=== PATIENT | male | born 1990 | race Caucasian/White ===

== ENCOUNTER 2023-10-15 01:11 | Day surgery (SDC) | payer OTHER, SELFPAY ==
[2023-09-29 09:48] VITALS: BMI 32.3
[2023-10-15 11:13] VITALS: BP 126/82; PULSE 96; RESP 19; TEMP 36.4; O2SAT 96
--- NOTE | 2023-10-15 11:18 | WPDANESEPPF ---
Anes - Initial Pre Proc Eval Procedure: Operation Date: 10/15/23 12:30 Proposed Procedures p Colonoscopy - Chadwick Conley MD Date/Time: 10/15/23 11:18 Surgeon: Chadwick Conley MD Pre Op Diagnosis: Fam. hx. colon cancer Patient Data Age: 33 Gender: M Height: 1.85 m Weight: 106.5 kg Last Vital Signs Temp 97.6 F 10/15/23 11:13 Pulse 96 10/15/23 11:13 Resp 19 10/15/23 11:13 BP 126/82 10/15/23 11:13 Pulse Ox 96 10/15/23 11:13 O2 Del Method Room Air 10/15/23 11:13 Allergies Allergy/AdvReac Type Severity Reaction Status Date / Time cefaclor Allergy Hives Verified 10/15/23 11:12 Home Medications Medication Instructions Recorded Confirmed Type No Home Medications 09/29/23 09/29/23 History Patient hx anesthesia problems: none Family hx anesthesia problems: none Results Review: All pre-operative results and documents have been reviewed as part of the pre-operative evaluation. [facility] Social History Social History Years smoked: 5 Smoking status: Former smoker Tobacco type: cigarettes Substance use type: does not use Living arrangements: other Additional living arrangements comments: with sp Anes - Eval Final PreProcedure Day of Procedure 10/15/23 11:18 Patient weight: obese Heart: regular rate and rhythm Lungs: clear to auscultation Airway: Mallampati scale class II Neurological: alert and oriented Last oral intake: >/= 8 hours ASA classification: II Emergent: no Anesthetic plan: proceed Anesthesia type and monitoring: general GIVS and standard monitoring Results Review: All pre-operative results and documents have been reviewed as part of the pre-operative evaluation. Informed Consent: The patient's anesthetic plan and its attendant risks and benefits were discussed with the patient/family/POA. Questions were solicited and answers provided to the satisfaction of the patient/family/POA.
[2023-10-15] MEDS: LACTATED RINGERS 1,000 ML 150 ML IV CONT (11:30)
--- NOTE | 2023-10-15 11:32 | PM.HPGS ---
History of Present Illness History of Present Illness Consent: Risks, benefits, and alternatives have been discussed and questions answered. Patient agrees to proceed with procedure. Chief complaint: Fam. hx. colon cancer Narrative: Davie Mccray is a 33 year old male here for first colonoscopy, father had colon cancer in his 40's Review of Systems Review of Systems: All systems reviewed & are unremarkable except as noted in HPI and below PMFSH Past Medical History Medical History (Updated 10/15/23 @ 11:32 by Chadwick Conley MD) Family history of colon cancer in father Social History Social History Years smoked: 5 Smoking status: Former smoker Tobacco type: cigarettes Substance use type: does not use Living arrangements: other Additional living arrangements comments: with sp Meds Home Medications and Allergies Home Medications Medication Instructions Recorded Confirmed Type No Home Medications 09/29/23 09/29/23 History Allergies Allergy/AdvReac Type Severity Reaction Status Date / Time cefaclor Allergy Hives Verified 10/15/23 11:12 Vital Signs Vital Signs - 24 hr 10/15/23 11:13 10/15/23 11:27 Temperature 97.6 F Pulse Rate 96 97 Respiratory Rate 19 22 H Blood Pressure 126/82 118/76 Pulse Oximetry 96 97 Oxygen Delivery Room Air Room Air Exam Const: General: comfortable and no acute distress HENMT: Face/Nose/Sinus: Normal nares present Eyes: General: appearance normal, both eyes and all related structures Neck: Neck: no JVD Resp: Auscultation: clear to auscultation bilaterally Cardio: Rate: regular rate Rhythm: regular rhythm GI: Inspection: non-distended GI Palp: Yes Soft to palpation Skin: General skin exam: normal color Neuro: General: gait normal Speech: normal speech Extrem: General: normal to inspection Psych: Mental Status: mental status grossly normal Assessment and Plan Assessment and plan (1) Family history of colon cancer in father: Code(s): Z80.0 - Family history of malignant neoplasm of digestive organs Status: Acute Assessment and Plan: colonoscopy
[2023-10-15 11:46] VITALS: BP 114/72; PULSE 95; RESP 24; O2SAT 96
[2023-10-15 11:56] VITALS: BP 119/73; PULSE 93; RESP 22; O2SAT 97
[2023-10-15 12:06] VITALS: BP 121/81; PULSE 83; RESP 22; O2SAT 97
== END 2023-10-15 12:24 | disposition home or self-care (01) ==
PROVIDERS: PCP Internal Medicine; Visit Provider Internal Medicine Gastroenterology
PROC: 0DJD8ZZ Inspection of Lower Intestinal Tract, Via Natural or Artificial Opening Endoscopic (ICD-10-PCS; CPT 45378; principal; 2023-10-15 12:30)
DX: Z12.11 Encounter for screening for malignant neoplasm of colon (principal); D12.3 Benign neoplasm of transverse colon; K64.8 Other hemorrhoids; Z80.0 Family history of malignant neoplasm of digestive organs; Z87.891 Personal history of nicotine dependence; E66.9 Obesity, unspecified; Z68.31 Body mass index [BMI] 31.0-31.9, adult
CPT/HCPCS: 45385; 36415; 80053; 80061; 81001; 84402; 84403; 84443; 85027; 88305; J2704; J7120

== ENCOUNTER 2023-10-15 12:32 | Outpatient (CLI) | payer OTHER, SELFPAY ==
[2023-10-15 13:19] LABS: Hematocrit 45.3 % (42.0-52.0); Hemoglobin 15.7 g/dL (14.0-18.0); Mean Corpuscular HGB Conc 34.7 g/dl (32-36); Mean Corpuscular Volume 83.7 fl (80-100); Mean Platelet Volume 11.1 fl (7.4-10.4); Platelet Count Result 237 k/mm3 (150-375); Red Blood Count 5.41 M/mm3 (4.6-6.20); Red Cell Distribution Width 12.7 % (11.5-14.5); White Blood Count 7.6 K/mm3 (4.5-10.0)
[2023-10-15 13:26] LABS: Add Urine Microscopic? YES; Appearance Urine Turbid (Clear); Bacteria Urine None Seen /hpf; Bilirubin Urine Negative (Negative); Blood Urine Negative (Negative); Color Urine Dark Yellow (Yellow); Glucose Urine UA Negative (Negative); Ketones Urine Trace mg/dL (Negative); Leukocyte Esterase Ur Negative LEU/UL (Negative); Nitrate Urine Negative (Negative); Non Pathogenic Casts 0-2; Protein Urine Trace mg/dL (Negative); RBC Urine 0-2 /hpf (0-2); Specific Grav Ur 1.025 (1.001-1.035); Squamous Epithelial Cell Urine None Seen /hpf (Few); Urobilinogen Urine 0.2 mg/dL (<2.0); WBC Urine 0-5 /hpf (0-3); pH Urine 5.5 (5.0-9.0)
[2023-10-15 13:55] LABS: Alanine Aminotransferase 41 U/L (6-50); Albumin Level 4.7 g/dL (3.5-5.1); Alkaline Phosphatase 90 U/L (38-126); Anion Gap 10 mmol/L (4-12); Aspartate Amino Transferase 32 U/L (17-59); Bilirubin,Total 0.6 mg/dL (0.2-1.3); Blood Urea Nitrogen 13 mg/dL (9-20); Calcium 9.3 mg/dL (8.4-10.2); Carbon Dioxide 28 mmol/L (22-30); Chloride 101 mmol/L (98-107); Cholesterol 201 mg/dL (0-200); Estimated Glomerular Filt Rate > 60; Glucose 100 mg/dL (65-110); HDL Direct 39 mg/dL; Potassium 4.1 mmol/L (3.4-5.0); Sodium 139 mmol/L (137-145); Triglycerides 298 mg/dL (<150)
[2023-10-15 14:06] LABS: LDL Cholesterol Direct 107 mg/dL
[2023-10-15 14:25] LABS: Thyroid Stimulating Hormone 0.724 uIU/mL (0.465-4.680)
[2023-10-21 10:12] LABS: Testosterone Free 43.9 pg/mL (35.0-155.0); Testosterone Total 262 ng/dL (250-1100)
== END 2023-10-15 12:33 | disposition home or self-care (01) ==
LOC: ANHLAB 12:35
PROVIDERS: PCP Internal Medicine; Visit Provider Internal Medicine
DX: R68.82 Decreased libido (principal); E29.1 Testicular hypofunction
CPT/HCPCS: 36415; 80053; 80061; 81001; 84402; 84403; 84443; 85027